=== PATIENT | male | born 1955 | race Caucasian/White ===

== ENCOUNTER → 2021-03-23 09:59 | Outpatient (POV) | payer BC, SELFPAY | PROVIDERS: Visit Provider Dermatology | DX: Z00.00 Encounter for general adult medical examination without abnormal findings (principal) ==

== ENCOUNTER 2022-07-28 08:12 | Day surgery (SDC) | payer MEDICARE, OTHER, SELFPAY ==
[2022-07-25 13:49] VITALS: BMI 27.2
[2022-07-28] VITALS (10 sets, daily range): BP systolic 96–133; BP diastolic 60–83; PULSE 59–79; RESP 14–18; TEMP 36.2–36.8; O2SAT 92–95
--- NOTE | 2022-07-28 08:54 | EXP.ANES.CKL ---
[facility] Disclaimer: The information contained in this section may have been updated after the patient was seen, as this information can be updated by other users. Medical History History of patellar fracture History of skin cancer Hyperlipidemia Surgical History History of appendectomy Hx of inguinal hernia repair Family History Other No significant family history Social History Smoking Status: Never smoker alcohol intake: current substance use type: denies use current occupational status: retired Travel in the last 8 weeks: None household members: family housing: house marital status: education level: college special alonzo needs: No agree to transfusion: No do you feel safe at home: Yes victim of physical abuse: No victim of emotional abuse: No victim of sexual abuse: No would you like helpful sources: No [facility] Anesthesia Checklist Patient Identification Patient Identification: Arm Band and Verbal (Name & ) Structural Data Admitted From: Home Planned Operative Procedure/s: Colonoscopy Consent for Planned Operative Procedure(s) Verified: Yes NPO Status Verified Time NPO: 00:00 Airway Assessment C-Spine Mobility Assessed: Yes TMJ Mobility Assessed: Yes Dentition: Good Dentition Neurological Assessment Level of Consciousness: Awake Hx Seizures: No Numbness or tingling in extremities: No Anesthesia Plan Anesthesia Risk discussed: Yes Anesthesia Plan: Verified ASA Class: II Anesthesia Type: MAC
--- NOTE | 2022-07-28 09:31 | HMH.SCOPE ---
Procedure: Date: 07/28/22 Patient Date of :: 1955 Procedure Performed:: Screening colonoscopy Indications:: Personal history of polyps Performing Provider:: Surjit Goodman MD Referring Provider:: Weston Mcpherson MD Sedation:: Propofol Procedure:: After placing the patient in the left lateral decubitus position, the colonoscopy was gently inserted into the rectum and under direct visualization advanced to the cecum which was identified by transillumination in the right lower quadrant, identification of the ileocecal valve, appendiceal orifice, and cecal strap. Color, texture, mucosa, and anatomy of the colon were carefully examined with the scope. Findings:: Anal canal: normal Rectum: normal Sigmoid colon: normal without polyps or inflammatory changes, scattered diverticulosis Descending colon: normal without polyps or inflammatory changes Splenic flexure: normal Transverse colon: normal without polyps or inflammatory changes Hepatic flexure: normal Ascending colon: normal without polyps or inflammatory changes Cecum: normal Terminal ileum: not visualized Impression: Normal colonoscopy with scattered sigmoid diverticulosis Recommendations:: Follow up examination in about FIVE years or so, sooner if clinically indicated. Complications:: None Estimated blood obtained (mL): 0
--- NOTE | 2022-07-28 09:47 | PC.NURSE ---
0935 - Pt to post op from scope room accompanied by nursing staff and Raad Morse RN. Oral airway in place. Placed on simple mask for O2 support. Anesthesia aware of pt condition. Was able to be weaned to room air about 5 minutes after arrival to post op. Tolerating room air at this time. Resting, unarrousable but w/ stable vitals. Friend at bedside. Continuous monitoring.
== END 2022-07-28 10:45 | disposition home or self-care (01) ==
PROVIDERS: PCP Family Medicine; Visit Provider Internal Medicine Gastroenterology
PROC: 0DJD8ZZ Inspection of Lower Intestinal Tract, Via Natural or Artificial Opening Endoscopic (ICD-10-PCS; CPT 45378; principal; 2022-07-28 09:00)
DX: Z12.11 Encounter for screening for malignant neoplasm of colon (principal); K57.30 Diverticulosis of large intestine without perforation or abscess without bleeding; Z79.899 Other long term (current) drug therapy
CPT/HCPCS: G0105

== ENCOUNTER → 2022-12-19 12:00 | Outpatient (CLI) | payer MEDICARE, OTHER, SELFPAY ==
[2022-12-19 16:14] LABS: Bordetella Pertussis Not Detected (NotDetected); Chlamydophila Pneumoniae, PCR Not Detected (NotDetected); Coronavirus 19, PCR Not Detected (NotDetected); Coronavirus 229E Not Detected (NotDetected); Coronavirus NL63 Not Detected (NotDetected); Coronavirus OC43 Not Detected (NotDetected); Coronovirus HKU1,PCR Not Detected (NotDetected); Human Metapneumovirus Not Detected (NotDetected); Influenza A, PCR Not Detected (NotDetected); Influenza AH1, 2009 Not Detected (NotDetected); Influenza AH1, PCR Not Detected (NotDetected); Influenza AH3,PCR Not Detected (NotDetected); Influenza B, PCR Not Detected (NotDetected); Mycoplasma Pneumoniae, PCR Not Detected (NotDetected); Parainfluenza 1, PCR Not Detected (NotDetected); Parainfluenza 2, PCR Not Detected (NotDetected); Parainfluenza 3, PCR Not Detected (NotDetected); Parainfluenza 4, PCR Not Detected (NotDetected); Respiratory Syncytial Virus Not Detected (NotDetected)
[2022-12-19 18:25] LABS: Adenovirus,PCR Detected (NotDetected); Rhinovirus/Enterovirus Detected (NotDetected)
== END ==
PROVIDERS: PCP Nurse Practitioner Family; Visit Provider Nurse Practitioner Family
DX: J98.8 Other specified respiratory disorders (principal); R06.02 Shortness of breath; B34.0 Adenovirus infection, unspecified; B34.1 Enterovirus infection, unspecified; J06.9 Acute upper respiratory infection, unspecified; R05.8 Other specified cough
CPT/HCPCS: 87581; 87632; 87798

== ENCOUNTER 2023-08-15 11:12 | Outpatient (POV) | payer MEDICARE, OTHER, SELFPAY | END 2023-08-15 23:59 | disposition home or self-care (01) | LOC: SC 11:13 | PROVIDERS: PCP Nurse Practitioner Family; Visit Provider Dermatology | DX: Z00.00 Encounter for general adult medical examination without abnormal findings (principal) ==

== ENCOUNTER 2023-09-05 02:22 | Observation (INO) | payer MEDICARE, OTHER, SELFPAY ==
[2023-09-05] VITALS (10 sets, daily range): BP systolic 90–123; BP diastolic 54–83; PULSE 71–104; RESP 16–29; TEMP 36.4–39.6; O2SAT 91–98; BMI 27.2; BMI 28.6
--- NOTE | 2023-09-05 02:27 | XR_ITS ---
PROCEDURE INFORMATION: Exam: XR Chest Exam date and time: 09/05/2023 2:33 AM Age: 67 years old Clinical indication: Fever; Additional info: Fever unknown source TECHNIQUE: Imaging protocol: Radiologic exam of the chest. Views: 1 view. COMPARISON: No relevant prior studies available. FINDINGS: Lungs: Unremarkable. No consolidation. Pleural spaces: Unremarkable. No pleural effusion. No pneumothorax. Heart/Mediastinum: Unremarkable. No cardiomegaly. Vasculature: Unremarkable. Bones/joints: Unremarkable. IMPRESSION: No acute findings.
[2023-09-05 02:41] LABS: Basophils % 0.4 % (0.1-2.0); Eosinophils % 0.4 % (0.1-12.0); Hemoglobin 13.7 g/dL (14.1-18.0); Lymphocytes # 1.4 K/mm3 (0.7-4.5); Lymphocytes % 12.5 % (10-50); Mean Corpuscular HGB Conc 33.3 g/dL (31.8-35.4); Mean Corpuscular Hemoglobin 31.3 pg (27.0-31.2); Mean Corpuscular Volume 94.1 fl (80-94); Mean Platelet Volume 8.3 fl (7.4-10.4); Monocytes # 0.3 K/mm3 (0.1-1.0); Monocytes % 2.2 % (1.7-9.3); Neutrophils # 9.6 K/mm3 (1.8-7.8); Neutrophils % 84.6 % (37.0-80.0); Platelet Count 144 K/mm3 (142-424); Red Blood Count 4.36 M/mm3 (4.60-6.20); White Blood Count 11.4 K/mm3 (4.8-10.8)
[2023-09-05 02:42] LABS: Chloride 98 mmol/L (98-107); Sodium 130 mmol/L (136-145)
[2023-09-05 02:43] LABS: Coronavirus 19, PCR Not Detected (NotDetected); Influenza A, PCR Not Detected (NotDetected); Influenza B, PCR Not Detected (NotDetected)
[2023-09-05 02:45] LABS: Alanine Aminotransferase 46 U/L (12-78); Albumin Level 4.2 g/dl (3.5-5.0); Albumin/Globulin Ratio 1.5 (1.1-1.8); Alkaline Phosphatase 87 U/L (38-126); Aspartate Amino Transferase 54 U/L (17-59); Bilirubin,Total 2.9 mg/dl (0.2-1.3); Blood Urea Nitrogen 31 mg/dl (9-20); Calcium 9.2 mg/dl (8.4-10.2); Carbon Dioxide 19 mmol/L (22.0-30.0); Creatinine Clearance Estimated 57 mL/min (50-200); Estimated Glomerular Filt Rate 46 ml/min (>60); GFR (African American) 56 ML/MIN (>60); Globulin 2.8 g/dL (1.3-3.2); Glucose 186 mg/dl (74-100); Lipase 76 U/L (23-300); Magnesium 1.7 mg/dl (1.6-2.3)
--- NOTE | 2023-09-05 02:48 | ED_ITS ---
Discharge Plan Disposition Patient Disposition: Admitted Condition: Fair Clinical Impressions Clinical Impression: Sepsis, Hyponatremia, Elevated serum creatinine, Neck pain Discharge ED Provider: Mark Pacheco General Adult HPI General Chief complaint: Nausea/Vomiting/Diarrhea Stated complaint: neck pain & fever Time Seen by Provider: 09/05/23 02:27 Mode of Arrival: EMS Source of Information: Patient Limitations: No Limitations Description of Symptoms (Recalled from ER Triage Doc. by RN): Pt presented to the ED per EMS for left-sided neck/shoulder pain, N/V, and fever. Pt stated that he has not actually taken his temperature at home but has felt like he has had one, and his stomach has just felt sour. Pt also stated that he was trimming bushes 3 days ago that he had to reach up high to do for about 3 hours and think his neck/shoulder pain is from that but not sure. He only has pain with movement. History of Present Illness HPI narrative: 67-year-old male with history of hypertension hyperlipidemia presents with multiple complaints. His primary complaint is left sided neck/trapezius pain. He reports it has been sore and worsening over the last few days. He reports that he was trimming bushes for about 3 hours and it became sore after that. No specific fall or injury. Pain is only present with movement. He denies any headache vision changes weakness numbness or other neurologic symptoms. He also has fever and nausea and vomiting. He is not sure how long he has had the fever. He reports that for the last couple of days his stomach has been sour . He denies any specific pain. Denies any history of intra-abdominal surgery. He reports mild vomiting, reports normal bowel movements. Related Data Home Medications Medication Instructions Recorded Confirmed atorvastatin 20 mg tablet 20 mg PO DAILY Cholesterol 07/25/22 09/05/23 ripqxposmaly-iebplzxf-odqzz acid 1 cap PO DAILY Supplement 07/25/22 09/05/23 400 mcg-vitamin K 80 mcg capsule (Multi For Her 50 Plus) gemfibrozil 600 mg tablet 600 mg PO BID 11/14/22 09/05/23 sildenafil 100 mg tablet 100 mg PO DAILY PRN Erectile 12/19/22 09/05/23 Dysfunction Previous Rx's Medication Instructions Recorded cojlrszlqmvhmdz-nweevdhganqgpcc-XT 7.5 ml PO Q4-6H PRN cough #473 mL 12/19/22 2 mg-30 mg-10 mg/5 mL oral syrup (Bromfed DM) Allergies Allergy/AdvReac Type Severity Reaction Status Date / Time codeine [CODEINE] Allergy Unknown NA-NAUSEA/V Verified 12/19/22 10:51 OMITING PFSH PFSH Disclaimer: The information contained in this section may have been updated after the patient was seen, as this information can be updated by other users. Medical History (Updated 09/05/23 @ 05:34 by Mark Pacheco MD) Respiratory tract infection History of skin cancer History of patellar fracture Hyperlipidemia Surgical History History of tonsillectomy Hx of inguinal hernia repair History of appendectomy Family History Other No significant family history Social History (Updated 09/05/23 @ 05:29 by Audrey Malcolm RN) Smoking Status: Never smoker alcohol intake: never substance use type: denies use current occupational status: retired Travel in the last 8 weeks: None household members: family housing: house marital status: education level: college caffeine: Yes special alonzo needs: No agree to transfusion: No do you feel safe at home: Yes victim of physical abuse: No victim of emotional abuse: No victim of sexual abuse: No would you like helpful sources: No ROS Obtained: Yes All systems reviewed & no additional complaints except as documented Physical Exam General General appearance: alert and in no apparent distress Head Head exam: atraumatic and normocephalic Eye Eye exam: Present normal appearance, PERRL and EOMI ENT ENT exam: Present normal oropharynx and normal external ear exam Neck Neck exam: Present normal inspection, full ROM and tenderness (Left trapezius); Absent meningismus (Negative Kernig and brudzinski's sign) Chest Chest inspection: Present normal inspection and symmetric chest wall rise; Absent tenderness Respiratory Respiratory exam: Present normal lung sounds bilaterally; Absent respiratory distress Cardiovascular Cardiovascular exam: Present normal rhythm and tachycardia Abdominal Exam Abdominal exam: Present soft; Absent distention, tenderness or guarding Extremities Exam Extremities exam: Present normal inspection; Absent edema or joint swelling Back Exam Back exam: Present normal inspection; Absent tenderness Neurological Exam Neurological exam: Present alert and oriented X3; Absent motor sensory deficit Psychiatric Psychiatric exam: Present normal affect and normal mood Skin Skin exam: Present warm, dry and normal color Lymphatic Lymphatic Findings: no adenopathy Medical Decision Making Medical Records Medical records reviewed: Yes I reviewed the patient's medical records. Tk Inquiry Pt receiving controlled substance: No Tk was queried for this patient: No Vital Signs: 09/05/23 02:22 09/05/23 03:30 09/05/23 04:00 Temperature 103.3 F H Temperature Source Oral Pulse Rate 96 H 97 H Pulse Rate [Right Brachial] 104 H Respiratory Rate 22 18 22 Blood Pressure 117/57 L 121/69 Blood Pressure [Right Arm] 123/83 Blood Pressure Mean [Right Arm] 96 02 Sat by Pulse Oximetry 96 91 L 94 L Oxygen Delivery Method Room Air 09/05/23 04:30 09/05/23 05:00 Temperature Temperature Source Pulse Rate 98 H 93 H Pulse Rate [Right Brachial] Respiratory Rate 29 H 20 Blood Pressure 109/67 L 101/61 L Blood Pressure [Right Arm] Blood Pressure Mean [Right Arm] 02 Sat by Pulse Oximetry 91 L 93 L Oxygen Delivery Method Lab Data Lab results reviewed: Yes I reviewed the patient's lab results. Lab Results 09/05/23 02:20: WBC 11.4 H, RBC 4.36 L, Hgb 13.7 L, Hct 41.0 L, MCV 94.1 H, MCH 31.3 H, MCHC 33.3, RDW 14.0, Plt Count 144, MPV 8.3, Neut % (Auto) 84.6 H, Lymph % (Auto) 12.5, [place] % (Auto) 2.2, Eos % (Auto) 0.4, Baso % (Auto) 0.4, Neut # (Auto) 9.6 H, Lymph # (Auto) 1.4, [place] # (Auto) 0.3, Eos # (Auto) 0.0, Baso # (Auto) 0.0, Sodium 130 L, Potassium 4.0, Chloride 98, Carbon Dioxide 19 L, Anion Gap 17.0 H, BUN 31 H, Creatinine 1.50 H, Estimated Creat Clear 57, Estimated GFR 46 L, Est GFR ( Amer) 56 L, Glucose 186 H, Calcium 9.2, Magnesium 1.7, T otal Bilirubin 2.9 H, AST 54, ALT 46, Alkaline Phosphatase 87, Total Protein 7.0, Albumin 4.2, Globulin 2.8, Albumin/Globulin Ratio 1.5, Lipase 76 09/05/23 02:35: Chlamy pneumoniae PCR Not detected, Adenovirus (PCR) Not detected, B. pertussis DNA (PCR) Not detected, Coronavirus OC43 (PCR) Not detected, Coronavirus HKU1 (PCR) Not detected, Coronavirus 229E (PCR) Not detected, SARS-CoV-2 (PCR) Not detected 09/05/23 02:35: SARS-CoV-2 (PCR) Not detected, Coronavirus NL63 (PCR) Not detected, Human Metapneumovir PCR Not detected, Influenza A (H1) PCR Not detected, Influ A (H1N1/09) PCR Not detected, Influenza A (H3) PCR Not detected, Influenza Type A (PCR) Not detected, Influenza A Untype (PCR) Not detected, Influenza Type B (PCR) Not detected 09/05/23 02:35: Influenza Type B (PCR) Not detected, M. pneumoniae (PCR) Not detected, Parainfluenza 1 (PCR) Not detected, Parainfluenza 2 (PCR) Not detected, Parainfluenza 3 (PCR) Not detected, Parainfluenza 4 (PCR) Not detected, RSV (PCR) Not detected, Entero/Rhino (PCR) Not detected 09/05/23 03:55: Urine Color Yellow, Urine Appearance Clear, Urine pH 6.0, Ur Specific [place] 1.010, Urine Protein 2+, Urine Glucose (UA) Negative, Urine Ketones 1+, Urine Blood 2+, Urine Nitrate Negative, Urine Bilirubin Negative, Urine Urobilinogen 1.0, Ur Leukocyte Esterase Negative, Urine RBC 5-10, Urine WBC Occasional, Urine Bacteria 1+ 09/05/23 02:20 09/05/23 02:20 Orders (Tests/Meds): ED MEDICATIONS Generic Name Dose Route Start Last Admin Trade Name Freq PRN Reason Stop Dose Admin Miscellaneous 1 each 09/05/23 04:30 Vancomycin Consult Request NOTAPPLIC 10/05/23 04:29 CONSULT PHARMACY [facility] Ondansetron HCl 4 mg 09/05/23 04:54 Ondansetron 4mg/2ml Vial IV 10/05/23 04:53 Q8HP PRN Nausea Promethazine HCl 25 mg 09/05/23 04:54 Promethazine Hcl 25mg/Ml 1ml Vial IV 10/05/23 04:53 Q6HP PRN Nausea And Vomiting Sodium Chloride 25 ml 09/05/23 04:57 Sodium Chloride 0.9% 25ml Bag IV 10/05/23 04:56 NEEDED PRN for Use with IV Promethazine Discontinued Medications Generic Name Dose Route Start Last Admin Trade Name Freq PRN Reason Stop Dose Admin Acetaminophen 1,000 mg 09/05/23 02:27 09/05/23 02:55 Acetaminophen 500mg Tab PO 09/05/23 02:28 1,000 mg ONCE ONE Administration Belladonna Alkaloids 60 ml 09/05/23 02:27 09/05/23 02:55 Belladonna Alkaloids 60 Ml Ml PO 09/05/23 02:28 60 ml ONCE ONE Administration Lactated Ringer's 1,000 mls @ 999 mls/hr 09/05/23 02:30 09/05/23 02:56 Lactated Ringer's 1000 Ml Bag IV 09/05/23 03:30 Not Given .Q1H1M TAMI Sodium Chloride 1,000 mls @ 999 mls/hr 09/05/23 02:54 09/05/23 02:55 Sod Chlor 0.9% 1000ml Bag IV 09/05/23 03:54 999 mls/hr .Q1H1M ONE Administration Piperacillin Sod/Tazobactam 100 mls @ 200 mls/hr 09/05/23 04:22 09/05/23 04:50 Sod 4.5 gm/ Sodium Chloride IV 09/05/23 04:51 200 mls/hr ONCE ONE Administration Iopamidol 70 ml 09/05/23 03:32 09/05/23 03:32 Iopamidol-370 (76%);100ml Bottle IV 09/05/23 03:33 70 ml ONCE ONE Administration Ketorolac Tromethamine 30 mg 09/05/23 02:27 09/05/23 02:55 Ketorolac 30mg/Ml Vial IV 09/05/23 02:28 30 mg ONCE ONE Administration Lidocaine 1 each 09/05/23 02:29 09/05/23 02:55 Lidocaine 5% Transdermal Patch TP 09/05/23 02:30 1 each ONCE ONE Administration Methocarbamol 500 mg 09/05/23 02:29 09/05/23 02:55 Methocarbamol 500mg Tablet PO 09/05/23 02:30 500 mg ONCE ONE Administration Ondansetron HCl 4 mg 09/05/23 02:27 09/05/23 02:55 Ondansetron 4mg/2ml Vial IV 09/05/23 02:28 4 mg ONCE ONE Administration Sodium Chloride 10 ml 09/05/23 03:32 09/05/23 03:32 Sodium Chloride 0.9% 10ml Syr (Rad Only) IV 09/05/23 03:33 10 ml ONCE ONE Administration ORDERS Category Date Time Status CT abdomen pelvis w con Stat Cat Scan 09/05/23 02:53 Completed CXR --portable [XR chest portable] Stat Exams 09/05/23 02:27 Completed CBC w/Auto Diff [Complete Blood Count Auto Diff] Stat Lab 09/05/23 02:20 Completed CMP [Comprehensive Metabolic Panel] Stat Lab 09/05/23 02:20 Completed Full Resp Panel w/COVID ([facility]) Routine Lab 09/05/23 02:35 Completed Lipase Stat Lab 09/05/23 02:20 Completed Magnesium Stat Lab 09/05/23 02:20 Completed Rapid PCR Covid and Flu A/B Stat Lab 09/05/23 02:35 Completed UA [Urinalysis and Microscopic] Stat Lab 09/05/23 03:55 Completed Blood Culture Stat Micro 09/05/23 02:35 Received Tissue Perfus/Sepsis Re-Eval Sepsis Re-Evaluation Performed: Yes Date Performed: 09/05/23 Time Performed: 04:09 Medical Decision Narrative: 67-year-old male with hypertension hyperlipidemia presents with multiple complaints including gradually worsening left trapezius neck pain, worse with movement, as well as a couple of days of nausea vomiting and now fever.. History was obtained interactive discussion with patient, EMS. On arrival, patient is febrile to 103, alert and oriented x 4, GCS 15, moving all extremities spontaneously. Full physical exam performed and significant for no focal neurologic deficits, normal cranial nerve exam, no bony tenderness of the neck, no focal abdominal tenderness Differential includes but is not limited to URI, UTI, pneumonia, gastroenteritis, diverticulitis, cholecystitis, meningitis, encephalitis. Patient was given GI cocktail, Tylenol, Toradol, Zofran, Robaxin, 1 L fluid bolus for symptomatic management and correction of underlying abnormalities. Workup initiated including CBC CMP UA blood cultures full viral respiratory panel chest x-ray, CT abdomen pelvis with IV contrast. Patient was only given 1 L of IV fluid given he is not hypotensive/not volume depleted on my assessment. On re-evaluation, patient remains hemodynamically stable. Reports some symptomatic improvement. Laboratory workup independently interpreted by me and significant for mild leukocytosis with white count 11.4, mild hyponatremia, elevated BUN/creatinine, bilirubin 2.9, COVID flu negative. Full viral panel negative. Imaging independently interpreted by me and significant for small amount of fluid throughout the small bowel, scattered diverticulosis, no evidence of cholecystitis or other emergent intra-abdominal pathology, chest x-ray without focal opacity.. See radiology read for full review of final results. LP was considered, but deemed unnecessary due to history and exam. Patient does have neck pain and fever. However, he does not have any meningeal signs, has had no headache, has no neurologic deficits. He also has a reason for the neck pain. I believe it is likely that he has 2 separate processes happening and at this point I think the risks of LP outweigh the benefits. Given patient history, exam and workup, patient's presentation most likely represents sepsis with unknown source. Given this, patient was given broad- spectrum IV antibiotics. Interactive discussion was had with hospitalist on- call for admission. Procedures Risk/Benefits of Procedure(s) Were Explained: Yes Critical Care Critical Care Time Critical Care Time: No
--- NOTE | 2023-09-05 02:53 | CT_ITS ---
PROCEDURE INFORMATION: Exam: CT Abdomen And Pelvis With Contrast Exam date and time: 09/05/2023 3:12 AM Age: 67 years old Clinical indication: Fever and nausea; Additional info: Fever, upset stomach TECHNIQUE: Imaging protocol: Computed tomography of the abdomen and pelvis with contrast. Radiation optimization: All CT scans at this facility use at least one of these dose optimization techniques: automated exposure control; mA and/or kV adjustment per patient size (includes targeted exams where dose is matched to clinical indication); or iterative reconstruction. Contrast material: ISOVUE 370; Contrast volume: 70 ml; Contrast route: IV; COMPARISON: CR XR CHEST PORTABLE 09/05/2023 2:33 AM FINDINGS: Liver: No acute findings. No mass. Gallbladder and bile ducts: No acute findings, calcified stones or ductal dilation. Pancreas: No acute findings, focal abnormality or ductal dilation. Spleen: Punctate calcified granulomata in the spleen. Adrenal glands: Normal. No mass. Kidneys and ureters: Simple appearing bilateral renal cysts. Bilateral nonobstructing intrarenal calculi. Stomach and bowel: Diverticulosis is noted in the colon without evidence of acute diverticulitis. Appendix: No evidence of appendicitis. Intraperitoneal space: No free air. No significant fluid collection. Postsurgical changes in the left lower quadrant. Vasculature: No abdominal aortic aneurysm. Lymph nodes: Calcified mediastinal and right hilar lymph nodes. There are multiple nonspecific nonpathologic but prominent lymph nodes in the mesentery. There are no mesenteric lymph nodes of pathologic dimensions. Urinary bladder: Mild wall thickening of the partially distended urinary bladder. Reproductive: Unremarkable as visualized. Bones/joints: No acute osseous findings. Soft tissues: No acute findings. IMPRESSION: 1. Mild urinary bladder wall thickening at least partially related to the nondistention. Correlate for possible cystitis. 2. Diverticulosis. 3. Other chronic and postsurgical changes as described. COMMENTS: Consistent with the [place] [employer]'s Incidental Findings Committee white paper (J Am Salazar Radiol 2018): Any incidental renal lesion less than 1 cm or classified as too small to characterize, or any incidental cystic renal lesion characterized as simple-appearing, is likely benign. No follow-up imaging is recommended for these lesions per consensus recommendations based on imaging criteria.
[2023-09-05] MEDS: ONDANSETRON 4MG/2ML VIAL 4 MG IV ×2 (02:55→13:34)
[2023-09-05] MEDS: KETOROLAC 30MG/ML VIAL 30 MG IV (02:55)
[2023-09-05] MEDS: LIDOCAINE 5% TRANSDERMAL PATCH 1 EACH TP (02:55)
[2023-09-05] MEDS: BELLADONNA ALKALOIDS 60 ML ML PO (02:55)
[2023-09-05] MEDS: METHOCARBAMOL 500MG TABLET 500 MG PO (02:55)
[2023-09-05] MEDS: 0.9 % SODIUM CHLORIDE 1000ML 1,000 ML 999 ML IV (02:55)
[2023-09-05] MEDS: ACETAMINOPHEN 500MG TAB 1000 MG PO (02:55)
[2023-09-05 03:09] LABS: Adenovirus,PCR Not Detected (NotDetected); Bordetella Pertussis Not Detected (NotDetected); Chlamydophila Pneumoniae, PCR Not Detected (NotDetected); Coronavirus 19, PCR Not Detected (NotDetected); Coronavirus 229E Not Detected (NotDetected); Coronavirus NL63 Not Detected (NotDetected); Coronavirus OC43 Not Detected (NotDetected); Coronovirus HKU1,PCR Not Detected (NotDetected); Human Metapneumovirus Not Detected (NotDetected); Influenza A, PCR Not Detected (NotDetected); Influenza AH1, 2009 Not Detected (NotDetected); Influenza AH1, PCR Not Detected (NotDetected); Influenza AH3,PCR Not Detected (NotDetected); Influenza B, PCR Not Detected (NotDetected); Mycoplasma Pneumoniae, PCR Not Detected (NotDetected); Parainfluenza 1, PCR Not Detected (NotDetected); Parainfluenza 2, PCR Not Detected (NotDetected); Parainfluenza 3, PCR Not Detected (NotDetected); Parainfluenza 4, PCR Not Detected (NotDetected); Respiratory Syncytial Virus Not Detected (NotDetected); Rhinovirus/Enterovirus Not Detected (NotDetected)
[2023-09-05] MEDS: IOPAMIDOL-370 (76%);100ML BOTTLE 70 ML IV (03:32)
[2023-09-05] MEDS: SODIUM CHLORIDE 0.9% 10ML SYR (RAD ONLY) 10 ML IV (03:32)
[2023-09-05 04:01] LABS: Microscopic, Urine URINE MICROSCOPIC (MICROSCOPIC)
[2023-09-05 04:03] LABS: Appearance,Urine CLEAR (Clear); Bilirubin,Urine Negative (Negative); Blood, Urine 2+ (Negative); Color,Urine YELLOW (Yellow); Glucose,Urine (UA) Negative (Negative); Ketones,Urine 1+ (Negative); Leukocyte Esterase,Urine Negative (Negative); Nitrate,Urine Negative (Negative); Protein,Urine 2+ (Negative)
[2023-09-05 04:24] LABS: Bacteria,Urine 1+ /lpf; WBC,Urine Occasional #/hpf (0-3)
--- NOTE | 2023-09-05 04:35 | PC.NURSE ---
states dr baldwin would like serology results prior to admit discussion
[2023-09-05] MEDS: PIPERACILLIN/TAZO 4.5 GM in 0.9 % SODIUM CHLORIDE 100 ML IV (04:50)
--- NOTE | 2023-09-05 05:02 | EXP.HP ---
History of Present Illness *Admission Date: 09/05/23 *Reason for visit:: fever, nausea and vomiting *History of present illness: Mr. Rocha is a 67-year-old male with history of hypertriglyceridemia. He is otherwise generally healthy per his report. Presented to the ER because of persistent left-sided shoulder/neck pain. States he was working in his yard doing hedge trimming 3 days ago and was reaching above his head for several hours. Developed pain in the left side, tender to palpation. Denies any leena trauma. Also states that he is felt feverish, had nausea and vomiting 3 days ago. Has had very little to eat the past 2 days due to upset stomach. Was brought to the hospital via EMS due to his shoulder pain for evaluation. In the ER, he is febrile to 100.3. Stable on room air. Noted to have tachycardia. Workup including imaging and labs showed white count of 11.4. CT of abdomen pelvis with thickening of bladder wall but no other acute findings. Chest imaging unremarkable. She denies any cough, chest pain, syncope, confusion. Last bowel movement was yesterday and it was formed. No blood in vomit or stool. Denies any headache. Urine obtained showing bacteria but negative for nitrate and leuk esterase. Patient initiated on empiric antibiotics. Medicine consulted for admission and observation given patient's high fever and SIRS criteria. On arrival to the floor, patient states he would like to try some p.o. liquids. Still having pain in his neck, got some improvement from Toradol. Temperature improving after treatment in the ER. Denies any focal symptoms. Further review of labs shows mild elevation of bilirubin above 2. PFSH [facility] Disclaimer: The information contained in this section may have been updated after the patient was seen, as this information can be updated by other users. Medical History (Updated 09/05/23 @ 07:23 by Cristhian Estrada MD) Respiratory tract infection History of skin cancer History of patellar fracture Hyperlipidemia Surgical History History of tonsillectomy Hx of inguinal hernia repair History of appendectomy Family History Other No significant family history Social History Smoking Status: Never smoker alcohol intake: never substance use type: denies use current occupational status: retired Travel in the last 8 weeks: None household members: family housing: house marital status: education level: college caffeine: Yes special alonzo needs: No agree to transfusion: No do you feel safe at home: Yes victim of physical abuse: No victim of emotional abuse: No victim of sexual abuse: No would you like helpful sources: No Review of Systems Review of Systems Review of systems (narrative): 14 point review of systems performed, pertinent positives and negatives as per HPI Meds Home Medications and Allergies Home Medications Medication Instructions Recorded Confirmed Type atorvastatin 20 mg tablet 20 mg PO HS 07/25/22 09/05/23 History sildenafil 100 mg tablet (Viagra) 100 mg PO DAILY PRN Erectile 12/19/22 09/05/23 History Dysfunction New Prescriptions to Start Prescriptions: Allergies Allergy/AdvReac Type Severity Reaction Status Date / Time codeine [CODEINE] Allergy Unknown NA-NAUSEA/V Verified 12/19/22 10:51 OMITING Exam Data for Last 24 hours Vital signs and Labs for Last 24 Hours: Temp Pulse Resp BP Pulse Ox O2 Del Method 103.3 F H 98 H 29 H 109/67 L 91 L Room Air 09/05/23 02:22 09/05/23 04:30 09/05/23 04:30 09/05/23 04:30 09/05/23 04:30 09/05/23 02:22 Laboratory Results - last 24 hr 09/05/23 02:20: WBC 11.4 H, RBC 4.36 L, Hgb 13.7 L, Hct 41.0 L, MCV 94.1 H, MCH 31.3 H, MCHC 33.3, RDW 14.0, Plt Count 144, MPV 8.3, Neut % (Auto) 84.6 H, Lymph % (Auto) 12.5, [place] % (Auto) 2.2, Eos % (Auto) 0.4, Baso % (Auto) 0.4, Neut # (Auto) 9.6 H, Lymph # (Auto) 1.4, [place] # (Auto) 0.3, Eos # (Auto) 0.0, Baso # (Auto) 0.0, Sodium 130 L, Potassium 4.0, Chloride 98, Carbon Dioxide 19 L, Anion Gap 17.0 H, BUN 31 H, Creatinine 1.50 H, Estimated Creat Clear 57, Estimated GFR 46 L, Est GFR ( Amer) 56 L, Glucose 186 H, Calcium 9.2, Magnesium 1.7, Total Bilirubin 2.9 H, AST 54, ALT 46, Alkaline Phosphatase 87, Total Protein 7.0, Albumin 4.2, Globulin 2.8, Albumin/Globulin Ratio 1.5, Lipase 76 09/05/23 02:35: Chlamy pneumoniae PCR Not detected, Adenovirus (PCR) Not detected, B. pertussis DNA (PCR) Not detected, Coronavirus OC43 (PCR) Not detected, Coronavirus HKU1 (PCR) Not detected, Coronavirus 229E (PCR) Not detected, SARS-CoV-2 (PCR) Not detected 09/05/23 02:35: SARS-CoV-2 (PCR) Not detected, Coronavirus NL63 (PCR) Not detected, Human Metapneumovir PCR Not detected, Influenza A (H1) PCR Not detected, Influ A (H1N1/09) PCR Not detected, Influenza A (H3) PCR Not detected, Influenza Type A (PCR) Not detected, Influenza A Untype (PCR) Not detected, Influenza Type B (PCR) Not detected 09/05/23 02:35: Influenza Type B (PCR) Not detected, M. pneumoniae (PCR) Not detected, Parainfluenza 1 (PCR) Not detected, Parainfluenza 2 (PCR) Not detected, Parainfluenza 3 (PCR) Not detected, Parainfluenza 4 (PCR) Not detected, RSV (PCR) Not detected, Entero/Rhino (PCR) Not detected 09/05/23 03:55: Urine Color Yellow, Urine Appearance Clear, Urine pH 6.0, Ur Specific [place] 1.010, Urine Protein 2+, Urine Glucose (UA) Negative, Urine Ketones 1+, Urine Blood 2+, Urine Nitrate Negative, Urine Bilirubin Negative, Urine Urobilinogen 1.0, Ur Leukocyte Esterase Negative, Urine RBC 5-10, Urine WBC Occasional, Urine Bacteria 1+ I & O for Last 24 hours: Intake & Output 09/02/23 09/03/23 09/04/23 09/05/23 23:59 23:59 23:59 23:59 Weight 86.183 kg Constitutional Constitutional: no acute distress and cooperative *Routine HEENT Exam Head: Present normocephalic Eye: Present EOMI and PERRL ENT: Present mucous membranes moist *Routine Neck Exam Neck: Absent lymphadenopathy Comments: Tender left upper trapezius and lateral neck. Musculoskeletal tenderness. Full range of motion, negative meningeal signs *Routine Respiratory Exam Respiratory: Present CTA bilaterally; Absent rhonchi, wheezes or crackles *Routine Cardiovascular Exam Cardiovascular: Present RRR *Routine Abdominal Exam Abdominal: Present soft and normoactive bowel sounds; Absent tenderness *Routine Rectal Exam Rectal:: deferred *Routine Genitalia Exam Genitalia:: deferred *Routine Extremities Exam Extremities: Absent cyanosis, clubbing or edema *Routine Skin Exam Skin: Present intact and warm; Absent rash *Routine Neurological Exam Neurological: Present alert, oriented X3 and moving all extremities; Absent altered mental status Assessment and Plan *Assessment and plan (1) Fever of unknown origin: Status: Acute Category: Medical Code(s): R50.9 - Fever, unspecified (2) WISAM (acute kidney injury): Status: Acute Category: Medical Code(s): N17.9 - Acute kidney failure, unspecified (3) Hyperlipidemia: Status: Acute Category: Medical Code(s): E78.5 - Hyperlipidemia, unspecified (4) Hyponatremia: Status: Acute Category: Medical Code(s): E87.1 - Hypo-osmolality and hyponatremia (5) Elevated bilirubin: Status: Acute Category: Medical Code(s): R17 - Unspecified jaundice (6) Musculoskeletal neck pain: Status: Acute Category: Medical Code(s): M54.2 - Cervicalgia Plan 67-year-old male who presented to the ER because of persistent left neck pain. Found to have fever of 103 on arrival. Minor elevation white cell count of 11.4. Meeting SIRS criteria. Unclear source of fever. Discussed case with ER, request admission for rule out of sepsis and monitoring of cultures along with IV antibiotics. Medicine agreed to admit for observation. Patient alert and oriented x 4, hemodynamically stable on arrival to the floor. Stable on room air. Denies any nausea or vomiting at this time. Wants to try some p.o. intake. Has not eaten in 2 days. Neck pain improved but still there. Consistent with musculoskeletal pain. Afebrile at this time. Problems addressed as follows: Fever of unknown origin -Differential is broad and includes viral etiology/syndrome, UTI, sepsis, gastroenteritis. -Will transition to Levaquin 750 mg Every 48 hours for renal dosing given creatinine 1.5 and BUN of 31. Personally reviewed chest imaging and CT, no concern for pneumonia. Will cover with Levaquin as above for possible UTI. -Urine and blood cultures pending -Comprehensive respiratory panel negative -Repeat CBC, CMP, magnesium later today for trending of labs -Status post IV fluids in the ER. Will hold on further fluids at this time given patient's desire to try p.o. intake Left-sided neck pain: musculoskeletal in nature. Exam consistent with muscle strain. Continue Tylenol 650 mg as needed every 6 hours and Toradol 15 mg IV every 6 hours. Drug therapy necessitating monitoring due to risk for toxicity and injury to kidney. Counseled on some stretches during exam Hyponatremia: Sodium 130, chloride 98. In the setting of WISAM, suspect hypovolemic. WISAM: BUN 31, creatinine 1.5, unclear baseline however 20:1 ratio suggestive of prerenal state. Monitor for improvement with fluid resuscitation Elevated bilirubin: Unclear etiology or significance. Total bili 2.9. Normal AST, ALT, alk phos. Isolated elevated bilirubin in the state of no p.o. intake for 2 days, suggestive of Gilbert's, monitor for improvement with advancement of nutrition Hyperglycemia with glucose of 186. Patient denies diabetes. Able to need for screening, 5.9. No diagnosis of diabetes. Likely stress reaction Hypertriglyceridemia/dyslipidemia: Continue home Lipitor 20 mg nightly and gemfibrozil Full code Regular diet Foreign score of 0, no indication for anticoagulation.
--- NOTE | 2023-09-05 05:07 | PC.NURSE ---
Report called to JENNY Barron
--- NOTE | 2023-09-05 05:51 | PC.NURSE ---
patient arrived to floor via stretcher @[id number]
[2023-09-05] MEDS: LEVOFLOXACIN/D5W 750 MG/150 ML 750 MG/150 ML PIGGYBACK 100 MG IV (06:51)
[2023-09-05] MEDS: GEMFIBROZIL 600MG TABLET 600 MG PO ×2 (08:40→20:33)
[2023-09-05] MEDS: KETOROLAC 30MG/ML VIAL 15 MG IV ×2 (08:40→20:38)
[2023-09-05 09:11] LABS: Hemoglobin A1C 5.9 % (4.0-6.0)
[2023-09-05 10:02] LABS: Basophils % 0.2 % (0.1-2.0); Eosinophils % 0.1 % (0.1-12.0); Hematocrit 38.2 % (42.0-52.0); Hemoglobin 12.9 g/dL (14.1-18.0); Lymphocytes % 7.5 % (10-50); Mean Corpuscular HGB Conc 33.7 g/dL (31.8-35.4); Mean Corpuscular Hemoglobin 32.2 pg (27.0-31.2); Mean Corpuscular Volume 95.6 fl (80-94); Mean Platelet Volume 8.9 fl (7.4-10.4); Monocytes # 0.5 K/mm3 (0.1-1.0); Monocytes % 3.7 % (1.7-9.3); Neutrophils # 12.1 K/mm3 (1.8-7.8); Neutrophils % 88.4 % (37.0-80.0); Platelet Count 135 K/mm3 (142-424); Red Cell Distribution Width 13.7 % (11.5-17.5); White Blood Count 13.7 K/mm3 (4.8-10.8)
[2023-09-05 10:25] LABS: MANUAL DIFFERENTIAL MANUAL DIFFERENTIAL (MANUAL DIFF)
[2023-09-05 10:29] LABS: Chloride 99 mmol/L (98-107); Potassium 4.2 mmoL/L (3.5-5.1); Sodium 133 mmol/L (136-145)
[2023-09-05 10:32] LABS: Alanine Aminotransferase 45 U/L (12-78); Albumin Level 3.6 g/dl (3.5-5.0); Albumin/Globulin Ratio 1.3 (1.1-1.8); Alkaline Phosphatase 67 U/L (38-126); Anion Gap 13.2 mEq/L (5-15); Aspartate Amino Transferase 62 U/L (17-59); Bilirubin,Total 2.3 mg/dl (0.2-1.3); Blood Urea Nitrogen 34 mg/dl (9-20); Carbon Dioxide 25 mmol/L (22.0-30.0); Creatinine Clearance Estimated 50 mL/min (50-200); Estimated Glomerular Filt Rate 38 ml/min (>60); GFR (African American) 45 ML/MIN (>60); Globulin 2.7 g/dL (1.3-3.2); Total Protein,Serum 6.3 g/dl (6.3-8.2)
[2023-09-05 10:33] LABS: Calcium 8.8 mg/dl (8.4-10.2); Glucose 126 mg/dl (74-100)
[2023-09-05 11:37] LABS: Lymphocytes % 16 % (10-50); Monocytes % 3 % (2-9); Neutrophils % 81 % (42-76); Platelet Estimate Normal; RBC Morphology Normal; Total Cells Counted 100
[2023-09-05 12:51] LABS: Adenovirus F 40/41, stool Not Detected (NotDetected); Astrovirus Not Detected (NotDetected); Campylobacter Not Detected (NotDetected); Clostridium Difficile A/B, PCR Not Detected (NotDetected); Cryptosporidium Not Detected (NotDetected); Cyclospora Cayetanesis Not Detected (NotDetected); Entamoeba histolytica Not Detected (NotDetected); Enteroaggregative E coli Not Detected (NotDetected); Enteropathogenic E coli Not Detected (NotDetected); Enterotoxigenic E coli Not Detected (NotDetected); Giardia lamblia Not Detected (NotDetected); Norovirus Not Detected (NotDetected); Plesimonas Shigalloides, PCR Not Detected (NotDetected); Rotavirus A Not Detected (NotDetected); Salmonella, PCR Not Detected (NotDetected); Sapovirus Not Detected (NotDetected); Shiga-like toxin E coli Not Detected (NotDetected); Shigella Enterovasive E coli Not Detected (NotDetected); Vibrio Cholerae Not Detected (NotDetected); Vibrio, PCR Not Detected (NotDetected); Yersinia Entercolitica, PCR Not Detected (NotDetected)
[2023-09-05] MEDS: PIPERACILLIN/TAZO 3.375 GM in 0.9 % SODIUM CHLORIDE 50 ML IV ×2 (13:29→18:41)
--- NOTE | 2023-09-05 18:00 | PC.NURSE ---
A&Ox4. Lungs sounds clear throughout. 2+ pulses throughout. Pt has only requested pain medication once during this shift for left shoulder pain but has stated that his shoulder is feeling much better this afternoon/evening. Pt has been up to bedside chair for meals and ambulating independently around room.
[2023-09-05] MEDS: ATORVASTATIN 20MG TABLET 20 MG PO (20:33)
[2023-09-06] VITALS (7 sets, daily range): BP systolic 98–148; BP diastolic 63–83; PULSE 73–81; RESP 16–18; TEMP 36.7–37.5; O2SAT 97–98; BMI 28.8
[2023-09-06] MEDS: PIPERACILLIN/TAZO 3.375 GM in 0.9 % SODIUM CHLORIDE 50 ML IV ×4 (00:34→20:01)
--- NOTE | 2023-09-06 04:43 | PC.NURSE ---
NO FURTHER C/O SHOULDER PAIN SINCE MEDICATED WITH TORADOL AT 2037. VITAL SIGNS STABLE. AFEBRILE. INDEPENDENT TO BR. SHOWER RECEIVED.
[2023-09-06 06:37] LABS: Basophils % 0.2 % (0.1-2.0); Eosinophils % 0.4 % (0.1-12.0); Hematocrit 41.6 % (42.0-52.0); Hemoglobin 13.7 g/dL (14.1-18.0); Lymphocytes # 1.4 K/mm3 (0.7-4.5); Lymphocytes % 13.8 % (10-50); Mean Corpuscular HGB Conc 32.8 g/dL (31.8-35.4); Mean Corpuscular Hemoglobin 31.6 pg (27.0-31.2); Mean Corpuscular Volume 96.3 fl (80-94); Mean Platelet Volume 8.5 fl (7.4-10.4); Monocytes # 0.6 K/mm3 (0.1-1.0); Monocytes % 5.7 % (1.7-9.3); Neutrophils # 8.4 K/mm3 (1.8-7.8); Platelet Count 130 K/mm3 (142-424); Red Blood Count 4.32 M/mm3 (4.60-6.20); Red Cell Distribution Width 13.8 % (11.5-17.5); White Blood Count 10.5 K/mm3 (4.8-10.8)
[2023-09-06] MEDS: GEMFIBROZIL 600MG TABLET 600 MG PO ×2 (09:08→20:01)
[2023-09-06] MEDS: LEVOFLOXACIN/D5W 750 MG/150 ML 750 MG/150 ML PIGGYBACK 100 MG IV (09:09)
[2023-09-06 11:15] LABS: Alanine Aminotransferase 59 U/L (12-78); Albumin Level 3.5 g/dl (3.5-5.0); Albumin/Globulin Ratio 1.3 (1.1-1.8); Alkaline Phosphatase 85 U/L (38-126); Anion Gap 13.8 mEq/L (5-15); Aspartate Amino Transferase 88 U/L (17-59); Bilirubin,Total 1.4 mg/dl (0.2-1.3); Blood Urea Nitrogen 35 mg/dl (9-20); Calcium 8.5 mg/dl (8.4-10.2); Carbon Dioxide 24 mmol/L (22.0-30.0); Chloride 101 mmol/L (98-107); Creatinine Clearance Estimated 60 mL/min (50-200); Estimated Glomerular Filt Rate 46 ml/min (>60); GFR (African American) 56 ML/MIN (>60); Globulin 2.7 g/dL (1.3-3.2); Glucose 109 mg/dl (74-100); Magnesium 2.4 mg/dl (1.6-2.3); Potassium 3.8 mmoL/L (3.5-5.1); Sodium 135 mmol/L (136-145); Total Protein,Serum 6.2 g/dl (6.3-8.2)
[2023-09-06] MEDS: CYCLOBENZAPRINE 10MG TABLET 5 MG PO ×2 (12:16→20:01)
--- NOTE | 2023-09-06 16:11 | EXP.PN ---
Subjective *Date: 09/06/23 *Time: 16:11 Interval history: patient is seen at bedside, denied CP, SOB, N/V Exam Data for Last 24 hours Vital signs and Labs for Last 24 Hours: Temp Pulse Resp BP Pulse Ox O2 Del Method O2 Flow Rate 98.4 F 74 18 121/67 97 Room Air 2 09/06/23 16:00 09/06/23 16:00 09/06/23 16:00 09/06/23 16:00 09/06/23 16:00 09/06/23 16:00 09/05/23 05:08 Laboratory Results - last 24 hr 09/06/23 05:57: WBC 10.5, RBC 4.32 L, Hgb 13.7 L, Hct 41.6 L, MCV 96.3 H, MCH 31.6 H, MCHC 32.8, RDW 13.8, Plt Count 130 L, MPV 8.5, Neut % (Auto) 80.0, Lymph % (Auto) 13.8, [place] % (Auto) 5.7, Eos % (Auto) 0.4, Baso % (Auto) 0.2, Neut # (Auto) 8.4 H, Lymph # (Auto) 1.4, [place] # (Auto) 0.6, Eos # (Auto) 0.0, Baso # (Auto) 0.0, Sodium 135 L, Potassium 3.8, Chloride 101, Carbon Dioxide 24, Anion Gap 13.8, BUN 35 H, Creatinine 1.50 H, Estimated Creat Clear 60, Estimated GFR 46 L, Est GFR ( Amer) 56 L D, Glucose 109 H, Calcium 8.5, Magnesium 2.4 H D, Total Bilirubin 1.4 H, AST 88 H D, ALT 59 D, Alkaline Phosphatase 85, Total Protein 6.2 L, Albumin 3.5, Globulin 2.7, Albumin/Globulin Ratio 1.3 I & O for Last 24 hours: Intake & Output 09/03/23 09/04/23 09/05/23 09/06/23 23:59 23:59 23:59 23:59 Intake Total 610 / 1260 1356 / 1356 Output Total 251 / 251 Balance 609 / 1259 1105 / 1105 Weight 90.718 kg 91.127 kg Microbiology Reports for the Last 24 Hours: Microbiology 09/05/23 02:35 Blood Blood Culture - Preliminary Gram Positive Cocci 09/05/23 02:20 Blood Blood Culture - Preliminary Gram Positive Cocci Constitutional Constitutional: no acute distress *Routine HEENT Exam Head: Present normocephalic Eye: Present EOMI and PERRL ENT: Present mucous membranes moist *Routine Neck Exam Neck: Present supple; Absent lymphadenopathy *Routine Respiratory Exam Respiratory: Present CTA bilaterally *Routine Cardiovascular Exam Cardiovascular: Present RRR *Routine Abdominal Exam Abdominal: Present soft and normoactive bowel sounds; Absent tenderness *Routine Extremities Exam Extremities: Absent cyanosis, clubbing or edema *Routine Skin Exam Skin: Present warm; Absent rash *Routine Neurological Exam Neurological: Present alert and oriented X3 Assessment and Plan *Assessment and plan (1) Fever of unknown origin: Status: Acute Category: Medical Code(s): R50.9 - Fever, unspecified (2) WISAM (acute kidney injury): Status: Acute Category: Medical Code(s): N17.9 - Acute kidney failure, unspecified (3) Hyperlipidemia: Status: Acute Category: Medical Code(s): E78.5 - Hyperlipidemia, unspecified (4) Hyponatremia: Status: Acute Category: Medical Code(s): E87.1 - Hypo-osmolality and hyponatremia (5) Elevated bilirubin: Status: Acute Category: Medical Code(s): R17 - Unspecified jaundice (6) Musculoskeletal neck pain: Status: Acute Category: Medical Code(s): M54.2 - Cervicalgia Plan 67-year-old male who presented to the ER because of persistent left neck pain. Found to have fever of 103 on arrival. Minor elevation white cell count of 11.4. Meeting SIRS criteria. Unclear source of fever. Discussed case with ER, request admission for rule out of sepsis and monitoring of cultures along with IV antibiotics. Medicine agreed to admit for observation. Patient alert and oriented x 4, hemodynamically stable on arrival to the floor. Stable on room air. Denies any nausea or vomiting at this time. Wants to try some p.o. intake. Has not eaten in 2 days. Neck pain improved but still there. Consistent with musculoskeletal pain. Afebrile at this time. Problems addressed as follows: Fever of unknown origin -Differential is broad and includes viral etiology/syndrome, UTI, sepsis, gastroenteritis. repeat blood cultures, continue IV levaquin, no more fevers while inpatient Left-sided neck pain: likely MSK pain, start on flexiril Hyponatremia: improved WISAM: improved Elevated bilirubin: Unclear etiology or significance. Total bili 2.9. Normal AST, ALT, alk phos. Isolated elevated bilirubin in the state of no p.o. intake for 2 days, suggestive of Gilbert's, monitor for improvement with advancement of nutrition Hyperglycemia with glucose of 186. Patient denies diabetes. Able to need for screening, 5.9. No diagnosis of diabetes. Likely stress reaction Hypertriglyceridemia/dyslipidemia: Continue home Lipitor 20 mg nightly and gemfibrozil Full code Regular diet continue IV abx, repeat cultures
--- NOTE | 2023-09-06 16:46 | PC.NURSE ---
Pt was pleasant with asking questions today. Pt rested in bed for most of the shift but has gotten up to the chair to eat his meals. Pt received antibiotics per MAR and labs have shown improvement accordingly. Pt enjoys to have a gatorade at bedside. Expectations for discharge suggested for tomorrow.
[2023-09-06] MEDS: ATORVASTATIN 20MG TABLET 20 MG PO (20:01)
[2023-09-06] MEDS: ONDANSETRON 4MG/2ML VIAL 4 MG IV (20:01)
[2023-09-07] VITALS: BP 114/67; PULSE 76; RESP 18; TEMP 37.2; O2SAT 95
[2023-09-07] MEDS: PIPERACILLIN/TAZO 3.375 GM in 0.9 % SODIUM CHLORIDE 50 ML IV ×2 (00:49→07:58)
[2023-09-07 03:58] VITALS: BP 137/80; PULSE 70; RESP 18; TEMP 37; O2SAT 97; BMI 28.8
--- NOTE | 2023-09-07 05:13 | PC.NURSE ---
FLEXERIL EFFECTIVE FOR PAIN IN NECK AND SHOULDER. VITAL SIGNS STABLE. AFEBRILE. NO FURTHER C/O NAUSEA SINCE 1999 . ZOFRAN EFFECTIVE.
[2023-09-07 07:57] VITALS: BP 103/64; PULSE 77; RESP 20; TEMP 37.1; O2SAT 96
[2023-09-07] MEDS: GEMFIBROZIL 600MG TABLET 600 MG PO (07:58)
[2023-09-07] MEDS: CYCLOBENZAPRINE 10MG TABLET 5 MG PO (08:02)
[2023-09-07] MEDS: LEVOFLOXACIN/D5W 750 MG/150 ML 750 MG/150 ML PIGGYBACK 100 MG IV (08:28)
--- NOTE | 2023-09-07 09:49 | EXP.DC.SUM ---
General Admission date:: 09/05/23 Discharge date: 09/07/23 HPI HPI HPI: Mr. Rocha is a 67-year-old male with history of hypertriglyceridemia. He is otherwise generally healthy per his report. Presented to the ER because of persistent left-sided shoulder/neck pain. States he was working in his yard doing hedge trimming 3 days ago and was reaching above his head for several hours. Developed pain in the left side, tender to palpation. Denies any leena trauma. Also states that he is felt feverish, had nausea and vomiting 3 days ago. Has had very little to eat the past 2 days due to upset stomach. Was brought to the hospital via EMS due to his shoulder pain for evaluation. In the ER, he is febrile to 100.3. Stable on room air. Noted to have tachycardia. Workup including imaging and labs showed white count of 11.4. CT of abdomen pelvis with thickening of bladder wall but no other acute findings. Chest imaging unremarkable. She denies any cough, chest pain, syncope, confusion. Last bowel movement was yesterday and it was formed. No blood in vomit or stool. Denies any headache. Urine obtained showing bacteria but negative for nitrate and leuk esterase. Patient initiated on empiric antibiotics. Medicine consulted for admission and observation given patient's high fever and SIRS criteria. On arrival to the floor, patient states he would like to try some p.o. liquids. Still having pain in his neck, got some improvement from Toradol. Temperature improving after treatment in the ER. Denies any focal symptoms. Further review of labs shows mild elevation of bilirubin above 2. Hospital Course Hospital Course Hospital Course: 67-year-old male who presented to the ER because of persistent left neck pain. Found to have fever of 103 on arrival. Minor elevation white cell count of 11.4. Meeting SIRS criteria. Unclear source of fever. Discussed case with ER, request admission for rule out of sepsis and monitoring of cultures along with IV antibiotics. Medicine agreed to admit for observation. Patient alert and oriented x 4, hemodynamically stable on arrival to the floor. Stable on room air. Denies any nausea or vomiting at this time. Wants to try some p.o. intake. Has not eaten in 2 days. Neck pain improved but still there. Consistent with musculoskeletal pain. Afebrile at this time. Problems addressed as follows: Fever of unknown origin - resolved, Blood cultures positive for strep pneumonia pansensitive - will initiate levofloxacin po at discharge and doxycyclin at discharge. patient is stable for discharge and f/u with PCP in 1 week On the date of discharge, the patient reported feeling stable. The patient was found not to be in any acute distress, and no new abnormalities on physical examination. Further, the patient expressed appropriate understanding of, and agreement with, the discharge recommendations, medications, and plan. Time spent 37 mins Exam Data for Last 24 hours Vital signs and Labs for Last 24 Hours: Temp Pulse Resp BP Pulse Ox O2 Del Method O2 Flow Rate 98.8 F 77 20 103/64 L 96 Room Air 2 09/07/23 07:57 09/07/23 07:57 09/07/23 07:57 09/07/23 07:57 09/07/23 07:57 09/07/23 08:20 09/05/23 05:08 Laboratory Results - last 24 hr 09/06/23 05:57: Sodium 135 L, Potassium 3.8, Chloride 101, Carbon Dioxide 24, Anion Gap 13.8, BUN 35 H, Creatinine 1.50 H, Estimated Creat Clear 60, Estimated GFR 46 L, Est GFR ( Amer) 56 L D, Glucose 109 H, Calcium 8.5, Magnesium 2.4 H D, Total Bilirubin 1.4 H, AST 88 H D, ALT 59 D, Alkaline Phosphatase 85, Total Protein 6.2 L, Albumin 3.5, Globulin 2.7, Albumin/Globulin Ratio 1.3 I & O for Last 24 hours: Intake & Output 09/04/23 09/05/23 09/06/23 09/07/23 23:59 23:59 23:59 23:59 Intake Total 610 / 1260 1576 / 1985 1110 / 1110 Output Total 252 / 252 Balance 609 / 1259 1324 / 1734 1109 / 1109 Weight 90.718 kg 91.127 kg 91.308 kg Microbiology Reports for the Last 24 Hours: Microbiology 09/05/23 03:55 Urine,Clean Catch Urine Culture - Final NO GROWTH AFTER 48 HOURS 09/05/23 02:20 Blood Blood Culture - Final Streptococcus pneumoniae 09/05/23 02:35 Blood Blood Culture - Final Streptococcus pneumoniae Constitutional Constitutional: no acute distress *Routine HEENT Exam Head: Present normocephalic Eye: Present EOMI and PERRL ENT: Present mucous membranes moist *Routine Neck Exam Neck: Present supple; Absent lymphadenopathy *Routine Respiratory Exam Respiratory: Present CTA bilaterally *Routine Cardiovascular Exam Cardiovascular: Present RRR *Routine Abdominal Exam Abdominal: Present soft and normoactive bowel sounds; Absent tenderness *Routine Extremities Exam Extremities: Absent cyanosis, clubbing or edema *Routine Skin Exam Skin: Present warm; Absent rash *Routine Neurological Exam Neurological: Present alert and oriented X3 Results Data Completed and Pending Labs on day of discharge: Labs from last 24 hours 09/06/23 05:57 Sodium 135 L Potassium 3.8 Chloride 101 Carbon Dioxide 24 Anion Gap 13.8 BUN 35 H Creatinine 1.50 H Estimated Creat Clear 60 Estimated GFR 46 L Est GFR ( Amer) 56 L D Glucose 109 H Calcium 8.5 Magnesium 2.4 H D Total Bilirubin 1.4 H AST 88 H D ALT 59 D Alkaline Phosphatase 85 Total Protein 6.2 L Albumin 3.5 Globulin 2.7 Albumin/Globulin Ratio 1.3 DS: Diagnosis Discharge Diagnosis (1) Fever of unknown origin: Status: Acute Code(s): R50.9 - Fever, unspecified (2) WISAM (acute kidney injury): Status: Acute Code(s): N17.9 - Acute kidney failure, unspecified (3) Hyperlipidemia: Status: Acute Code(s): E78.5 - Hyperlipidemia, unspecified (4) Hyponatremia: Status: Acute Code(s): E87.1 - Hypo-osmolality and hyponatremia (5) Elevated bilirubin: Status: Acute Code(s): R17 - Unspecified jaundice (6) Musculoskeletal neck pain: Status: Acute Code(s): M54.2 - Cervicalgia Meds Home Medications and Allergies Home Medications Medication Instructions Recorded Confirmed Type atorvastatin 20 mg tablet 20 mg PO HS 07/25/22 09/05/23 History sildenafil 100 mg tablet (Viagra) 100 mg PO DAILY PRN Erectile 12/19/22 09/05/23 History Dysfunction cyclobenzaprine 10 mg tablet 5 mg (1/2 x 10 mg) PO TIDP PRN 09/07/23 Rx Muscle Spasm 7 days #21 tabs doxycycline hyclate 100 mg capsule 100 mg PO BID 5 days #10 caps 09/07/23 Rx levofloxacin 750 mg tablet 750 mg PO DAILY 5 days #5 tabs 09/07/23 Rx New Prescriptions to Start Prescriptions: cyclobenzaprine Yann,Irfan doxycycline hyclate Yann,Irfan levofloxacin Yann,Irfan Allergies Allergy/AdvReac Type Severity Reaction Status Date / Time codeine [CODEINE] Allergy Unknown NA-NAUSEA/V Verified 12/19/22 10:51 OMITING Discharge Plan Disposition Patient Disposition: Home, Self-Care Condition: Good Follow up Plan Follow up with: Luis Mcpherson MD [Referring] - 09/13/23 11:00 am Prescriptions/Medication Reconciliation: New cyclobenzaprine 10 mg Tablet 5 mg PO TIDP PRN (Reason: Muscle Spasm) 7 Days Qty: 21 0RF levofloxacin 750 mg tablet 750 mg PO DAILY 5 Days Qty: 5 0RF doxycycline hyclate 100 mg capsule 100 mg PO BID 5 Days Qty: 10 0RF Continued sildenafil [Viagra] 100 mg tablet 100 mg PO DAILY PRN (Reason: Erectile Dysfunction) Patient Comments: TAKE ONE TABLET BY MOUTH EVERY DAY NEEDED atorvastatin 20 mg tablet 20 mg PO HS Problem Reconciliation Problems Reviewed?: Yes Patient Discharge Instructions ACTIVITY: Ambulate as tolerated DIET: continue same diet Patient Instructions: Fever of Unknown Origin, DI for Sepsis -- Adult Providers Primary Care Provider: Provider,Referral Admit Provider: Cristhian Estrada Attending Provider: Cristhian Estrada
--- NOTE | 2023-09-07 09:56 | HMH.PHAINT1 ---
Pharmacy Intervention Comments: DISCHARGE MEDICATION COUNSELING PROVIDED. DISCUSSED THE FOLLOWING NEW MEDICATIONS: -CYCLOBENZAPRINE (MUSCLE RELAXER, THREE TIMES DAILY NEEDED, MAY CAUSE SEDATION, DIZZINESS, DRY MOUTH, CONSTIPATION) -DOXYCYCLINE (ANTIBIOTIC, TWICE DAILY, START TONIGHT, TAKE WITH FOOD, N/V/D, SUN SENSITIVITY POSSIBLE) -LEVOFLOXACIN (ANTIBIOTIC, DAILY, START TOMORROW, TAKE WITH FOOD, N/V/D POSSIBLE) PATIENT ASKED IF HIS MEDICATIONS COULD BE FILLED AT CL[facility]IC [facility]. I ADVISED THAT THEY WERE SENT THERE ALREADY AND WOULD BE BROUGHT UP BEFORE THE PATIENT LEAVES SINCE HE IS MEDS TO BEDS. NO FURTHER QUESTIONS AT THIS TIME.
--- NOTE | 2023-09-08 11:03 | SW/DCPLANNER ---
Follow up phone call w/ this patient: patient stated that he feels great at this time aside from stiffness. Patient did not have any further questions/needs at this time.
== END 2023-09-07 12:46 | disposition home or self-care (01) ==
LOC: ER 02:57 → 2ND 05:06
PROVIDERS: Admitting Provider Internal Medicine Adolescent Medicine; Emergency Provider Emergency Medicine; Visit Provider Internal Medicine Adolescent Medicine
DX: R50.9 Fever, unspecified (principal); N17.9 Acute kidney failure, unspecified; E78.5 Hyperlipidemia, unspecified; E87.1 Hypo-osmolality and hyponatremia; R17 Unspecified jaundice; M54.2 Cervicalgia; Z79.899 Other long term (current) drug therapy
CPT/HCPCS: 36415; 71045; 74177; 80053; 81001; 83036; 83690; 83735; 85007; 85025; 87040; 87077; 87086; 87186; 87507; 87581; 87632; 87635; 87636; 87798; 99285; G0378; J1956; J2405; J2543; Q9967

== ENCOUNTER 2024-03-01 09:31 | Outpatient (CLI) | payer MEDICARE, OTHER, SELFPAY | END 2024-03-01 23:59 | disposition home or self-care (01) | LOC: LAB.DROPOF 03-04 09:31 | PROVIDERS: PCP Student in an Organized Health Care Education/Training Program; Visit Provider Student in an Organized Health Care Education/Training Program | DX: J02.9 Acute pharyngitis, unspecified (principal); R05.9 Cough, unspecified | CPT/HCPCS: 87070; 87635 ==

== ENCOUNTER 2024-03-17 02:03 | Emergency (ER) | payer MEDICARE, OTHER, SELFPAY ==
[2024-03-17 02:04] VITALS: BP 127/55; PULSE 91; RESP 16; TEMP 37.1; O2SAT 96; BMI 27.9
--- NOTE | 2024-03-17 02:14 | ED_ITS ---
Discharge Plan Disposition Patient Disposition: Home, Self-Care Prescriptions Prescriptions: New prednisone 50 mg tablet 50 mg PO DAILY 5 Days Qty: 5 0RF No Action amoxicillin-pot clavulanate 875-125 mg tablet 1 tab PO BID 10 Days Qty: 20 0RF guaifenesin 400 mg tablet 400 mg PO QID PRN (Reason: congestion) Qty: 20 0RF sildenafil [Viagra] 100 mg tablet 100 mg PO DAILY PRN (Reason: Erectile Dysfunction) Patient Comments: TAKE ONE TABLET BY MOUTH EVERY DAY NEEDED atorvastatin 20 mg tablet 20 mg PO HS cyclobenzaprine 10 mg Tablet 5 mg PO TIDP PRN (Reason: Muscle Spasm) 7 Days Qty: 21 0RF levofloxacin 750 mg tablet 750 mg PO DAILY 5 Days Qty: 5 0RF Referrals Follow up/Referrals: Sejal Betancourt PA [Primary Care Provider] - See instructions Activity Restrictions/Add. Instructions Additional Instructions/Restrictions: Please continue take medications as discussed. I sent prednisone to your pharmacy. Please follow-up with your primary care provider. Please return to the emergency department if you develop any new or worsening symptoms or become concerned for your health. I would recommend you do not take penicillins again. Clinical Impressions Clinical Impression: Allergic reaction Qualifiers: Encounter type: initial encounter Qualified Code(s): T78.40XA - Allergy, unspecified, initial encounter Print Language Print Language: Faroese Discharge ED Provider: Mark Pacheco General Adult HPI General Chief complaint: Skin/Abscess/Foreign Body Stated complaint: hives Time Seen by Provider: 03/17/24 02:14 History of Present Illness HPI narrative: 68-year-old male without significant past medical history presents for diffuse skin rash. He was diagnosed with strep throat by his PCP last week. He was started on amoxicillin but after taking it he ended up getting an allergic willow ction. He was seen at [facility] and treated with for anaphylaxis. He was discharged home and has been doing fine. His convinced him to complete his antibiotic course but when he took another pill tonight he broke out in a red rash. He took it about 6 or 7 hours ago. The rash started within an hour and is associated with pruritus but has not gotten any worse. He denies shortness of breath nausea vomiting chest pain abdominal pain etc. He took Benadryl and Pepcid at home. Related Data Home Medications ?Medication ?Instructions ?Recorded ?Confirmed atorvastatin 20 mg tablet 20 mg PO HS 07/25/22 03/01/24 sildenafil 100 mg tablet (Viagra) 100 mg PO DAILY PRN Erectile 12/19/22 03/01/24 Dysfunction Previous Rx's ?Medication ?Instructions ?Recorded cyclobenzaprine 10 mg tablet 5 mg (1/2 x 10 mg) PO TIDP PRN 09/07/23 Muscle Spasm 7 days #21 tabs levofloxacin 750 mg tablet 750 mg PO DAILY 5 days #5 tabs 09/07/23 amoxicillin 875 mg-potassium 1 tab PO BID 10 days #20 tabs 03/01/24 clavulanate 125 mg tablet guaifenesin 400 mg tablet 400 mg PO QID PRN congestion #20 03/01/24 tabs prednisone 50 mg tablet 50 mg PO DAILY 5 days #5 tabs 03/17/24 Allergies Allergy/AdvReac Type Severity Reaction Status Date / Time codeine (CODEINE) Allergy Unknown NA-NAUSEA/V Verified 03/01/24 09:05 OMITING PFSH PFSH Disclaimer: The information contained in this section may have been updated after the patient was seen, as this information can be updated by other users. Medical History Respiratory tract infection History of skin cancer face History of patellar fracture left Hyperlipidemia Surgical History History of tonsillectomy Hx of inguinal hernia repair left History of appendectomy Family History Other No significant family history Social History (Updated 03/02/24 @ 21:16 by BOOKER Daly) Smoking Status: Unknown if ever smoked alcohol intake: never substance use type: denies use current occupational status: retired Travel in the last 8 weeks: None household members: family housing: house marital status: education level: college caffeine: Yes special alonzo needs: No agree to transfusion: No do you feel safe at home: Yes victim of physical abuse: No victim of emotional abuse: No victim of sexual abuse: No would you like helpful sources: No Other Medical History Have you received the Flu Vaccine for this season: No Have you received the Pneumonia Vaccine: No ROS Obtained: Yes All systems reviewed & no additional complaints except as documented Physical Exam General General appearance: alert and in no apparent distress Head Head exam: atraumatic and normocephalic Eye Eye exam: Present normal appearance, PERRL and EOMI ENT ENT exam: Present normal oropharynx and normal external ear exam Neck Neck exam: Present normal inspection and full ROM Chest Chest inspection: Present normal inspection and symmetric chest wall rise; Absent tenderness Respiratory Respiratory exam: Present normal lung sounds bilaterally; Absent respiratory distress Cardiovascular Cardiovascular exam: Present regular rate and normal rhythm Abdominal Exam Abdominal exam: Present soft; Absent distention, tenderness or guarding Extremities Exam Extremities exam: Present normal inspection; Absent edema or joint swelling Back Exam Back exam: Present normal inspection; Absent tenderness Neurological Exam Neurological exam: Present alert and oriented X3; Absent motor sensory deficit Psychiatric Psychiatric exam: Present normal affect and normal mood Skin Skin exam: Present warm, dry and erythema (Diffuse blanching erythema) Lymphatic Lymphatic Findings: no adenopathy Medical Decision Making Medical Records Medical records reviewed: Yes I reviewed the patient's medical records. Screening: Per USPSTF and CDC recommendations, given the prevalence of disease in our region, it is our hospital?s policy to screen for HIV and viral Hepatitis for all patients aged 18 and over and those with ongoing risk factors. Tk Inquiry Pt receiving controlled substance: No Tk was queried for this patient: No Vital Signs: 03/17/24 02:04 03/17/24 02:31 Temperature 98.7 F 98.7 F Temperature Source Oral Oral Pulse Rate 99 H Pulse Rate [Left] 91 H Respiratory Rate 16 16 Blood Pressure 127/75 Blood Pressure [Right Arm] 127/55 L Blood Pressure Mean [Right Arm] 79 02 Sat by Pulse Oximetry 96 Oxygen Delivery Method Room Air Room Air Lab Data Lab results reviewed: Yes I reviewed the patient's lab results. Orders (Tests/Meds): ED MEDICATIONS Discontinued Medications Generic Name Dose Route Start Last Admin Trade Name Freq PRN Reason Stop Dose Admin Methylprednisolone Sodium Succinate 80 mg 03/17/24 02:20 03/17/24 02:34 Methylprednisolone Sod Succ 40mg Vial IV 03/17/24 02:21 80 mg ONCE ONE Administration Medical Decision Narrative: 68-year-old male presents for rash after taking Augmentin (he had an anap hylactic reaction to Augmentin a few days ago). History was obtained via interactive discussion with patient. On arrival, patient is [afebrile, hemodynamically stable, satting appropriately, alert, oriented x4, GCS 15], moving all extremities spontaneously. Full physical exam performed and significant for generalized erythema, no angioedema, clear lungs bilaterally. Differential includes but is not limited to allergic reaction, anaphylaxis, angioedema. Epinephrine, other adjuncts, observation was considered, but deemed unnecessary due to skin rash only, no involvement of other body systems, duration of time since ingestion.. Given patient history, exam and workup, patient's presentation most likely represents allergic reaction to Augmentin. Patient was instructed to avoid penicillins from now on. He was discharged with prescription for prednisone. Procedures Risk/Benefits of Procedure(s) Were Explained: Yes Critical Care Critical Care Time Critical Care Time: No
[2024-03-17 02:31] VITALS: BP 127/75; PULSE 99; RESP 16; TEMP 37.1; O2SAT 98
[2024-03-17] MEDS: METHYLPREDNISOLONE SOD SUCC 40MG VIAL 80 MG IV (02:34)
== END 2024-03-17 02:41 | disposition home or self-care (01) ==
LOC: ER 02:37
PROVIDERS: Emergency Provider Emergency Medicine; PCP Student in an Organized Health Care Education/Training Program
DX: T78.40XA Allergy, unspecified, initial encounter (principal); R21 Rash and other nonspecific skin eruption; T36.0X5A Adverse effect of penicillins, initial encounter; Y92.009 Unspecified place in unspecified non-institutional (private) residence as the place of occurrence of the external cause
CPT/HCPCS: 99283; J2919

== ENCOUNTER 2025-03-18 09:02 | Outpatient (CLI) | payer MEDICARE, SELFPAY ==
--- NOTE | 2025-03-18 09:07 | XR_ITS ---
FINAL REPORT CLINICAL HISTORY: MASS IN CHEST (right) FINDINGS: 2 views of the chest were obtained . The heart is normal in size. The mediastinum is within normal limits. The lungs are clear. There is no pneumothorax. Osseous structures are unremarkable. IMPRESSION: No acute cardiopulmonary process. Reviewed, Interpreted and Dictated by Iván Hamilton MD Transcribed by Swathi Manriquez Authenticated and [facility]
== END 2025-03-18 23:59 | disposition home or self-care (01) ==
LOC: RAD 09:05
PROVIDERS: PCP Family Medicine; Visit Provider Family Medicine
DX: R22.2 Localized swelling, mass and lump, trunk (principal)
CPT/HCPCS: 71046